=== PATIENT | male | born 1985 | race Caucasian/White ===

== ENCOUNTER 2020-07-27 08:40 | Emergency (ER) | payer BC ==
[~2020-07-27] VITALS: Ht 172.7 cm; Wt 72.1 kg
--- NOTE | 2020-07-27 08:58 | NUR ---
Patient ambulated with stable gait. A/Ox4. Speech is clear, speaks in complete sentences. No acute neuro deficits noted. Patient came for c/o laceration above left eyebrow s/p syncopal event with LOC. Respiratory even and unlabored, no cough no sob. Denies any cp, or palpitations. Denies any n/v/d or any gu distress. Patient placed in bed at lowest position, sr upx2, call light within reach. Fall precautions implemented per protocol.
--- NOTE | 2020-07-27 09:06 | NUR ---
ERMD at bedside for MSE
[2020-07-27] MEDS ORDERED: TDAP DIPH,PERTUSS,TET VAC/PF 0.5 ML DISP.SYRIN IM ONE ×2 (09:23→09:30)
--- NOTE | 2020-07-27 09:27 | NUR ---
Lab at bedside drawing blood.
--- NOTE | 2020-07-27 09:27 | NUR ---
Laceration repair set up at bedside.
[2020-07-27] MEDS ORDERED: LIDOCAINE 1%-EPI 1:100,000 20 ML VIAL IJ ONE (09:30)
[2020-07-27 09:36] LABS: BASOPHILS % (AUTO) 0.2 % (0.0-2.0); EOSINOPHILS # (AUTO) 0.1 K/uL (0.0-0.7); HEMATOCRIT 43.2 % (36.7-47.1); HEMOGLOBIN 14.6 g/dL (12.5-16.3); LYMPHOCYTES % (AUTO) 17.7 % (20.5-51.5); MEAN CORPUSCULAR HEMOGLOBIN 29.3 uug (23.8-33.4); MEAN CORPUSCULAR HGB CONC 34 g/dL (32.5-36.3); MEAN CORPUSCULAR VOLUME 86.9 fL (73.0-96.2); MONOCYTES # (AUTO) 0.3 K/uL (2.0-10.0); MONOCYTES % (AUTO) 4.8 % (0.0-11.0); NEUTROPHILS # (AUTO) 4.2 K/uL (1.8-8.9); NEUTROPHILS % (AUTO) 76.3 % (38.5-71.5); PLATELET COUNT (AUTO) 193 K/uL (152-348); RED BLOOD CELL COUNT(AUTO) 4.97 MIL/uL (4.06-5.63); WHITE BLOOD COUNT (AUTO) 5.5 K/uL (3.6-10.2)
--- NOTE | 2020-07-27 09:37 | NUR ---
ERMD at bedside for suture
[2020-07-27 09:51] LABS: BILIRUBIN,DIRECT 0.2 mg/dL (0.0-0.2); BILIRUBIN,TOTAL 0.8 mg/dL (0.2-1.0); CREATININE 1.2 mg/dL (0.6-1.3); POTASSIUM 4.6 mmol/L (3.5-5.1); TOTAL PROTEIN, SERUM 7.4 g/dL (6.4-8.2)
[2020-07-27] MEDS ORDERED: NEOMY/BACITRA/POLYMYXIN B OINT UD PACKET TP ONE ×2 (10:15→10:23)
[2020-07-27] MEDS ORDERED: SWABABLE VALVE TRANSFER SET EA MC ONE (10:19)
[2020-07-27] MEDS ORDERED: IV NORMAL SALINE 250 ML IV ONE (10:20)
[2020-07-27] MEDS ORDERED: IOHEXOL 350 100 ML INFUS..BTL ONE (10:20)
--- NOTE | 2020-07-27 10:27 | NUR ---
Patient transported to CT in stable condition.
[2020-07-27 11:38] VITALS: BP 119/73
--- NOTE | 2020-07-27 11:38 | NUR ---
Patient discharged to home in stable condition. Written and verbal after care instructions given. Patient verbalizes understanding of instructions. Stressed follow up or return to ER for worsening s/s. IV removed. Catheter intact and site benign. Pressure and 4x4 gauze applied to site. No bleeding noted. Patient ambulated with stable gait.
== END 2020-07-27 11:38 | disposition home or self-care (01) ==
LOC: ER 08:40
DX: R55 Syncope and collapse (principal); R00.1 Bradycardia, unspecified; S01.81XA Laceration without foreign body of other part of head, initial encounter; W18.39XA Other fall on same level, initial encounter; Y93.89 Activity, other specified; Y92.013 Bedroom of single-family (private) house as the place of occurrence of the external cause; Z82.49 Family history of ischemic heart disease and other diseases of the circulatory system; R79.1 Abnormal coagulation profile
CPT/HCPCS: 12011; 36415; 70450; 71275; 80048; 80076; 84484; 85025; 85379; 90471; 90715; 93005; 99285; J3490; Q9967; 70030-TC; A4217; A4663; J7030; J7050